=== PATIENT | female | born 1995 | race Caucasian/White ===

== ENCOUNTER 2018-06-02 23:33 | Emergency (ER) | payer OTHER ==
[~2018-06-02] VITALS: Ht 165.1 cm; Wt 56.6 kg
[2018-06-02 23:38] VITALS: BP 130/58
[2018-06-02] MEDS ORDERED: DOXY1TAB3 PO (23:55)
[2018-06-02] MEDS ORDERED: ondansetron 4mg rapidly disintigrating tab PO ONE (23:55)
== END 2018-06-03 00:26 | disposition home or self-care (01) ==
LOC: ER 23:35
DX: O21.2 Late vomiting of pregnancy (principal); Z3A.28 28 weeks gestation of pregnancy; Z79.899 Other long term (current) drug therapy
CPT/HCPCS: 99283